=== PATIENT | male | born 1960 | race Caucasian/White ===

== ENCOUNTER 2017-08-10 10:21 | Emergency (ER) | payer BC ==
[2017-08-10 10:36] VITALS: BP 138/87
[2017-08-10] MEDS ORDERED: Sodium Chloride 0.9% 10 ML Syringe FLUSH PRN (10:42)
--- NOTE | 2017-08-10 12:43 | CR ---
INDICATION: Chest pain. CHEST: An AP upright portable view of the chest was obtained 08/10/2017 - no comparisons were available. The heart is normal in size and shape. The aorta is tortuous to a moderate degree. Overlying EKG leads are noted. A definite active infiltrate or effusion was not identified. IMPRESSION: No acute process. MTDD
--- NOTE | 2017-08-10 13:10 | ER ---
DATE SEEN: 08/10/2017 TIME SEEN: The patient was seen at 1045 hours. 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 This is 2/10. It has gradually increased to 3/10. He had it last night, on and off. He has slight pressure in his neck and slightly lightheaded. No associated diaphoresis, nausea, palpitations, tachycardia, shortness of breath, or cough. He has not traveled long distance. SOCIAL HISTORY: He does not chew tobacco, does not smoke. He has 2 drinks a week. FAMILY HISTORY: Brother, alive and well. Sister, alive and well. Father of a stroke in his 60s. Paternal grandfather of myocardial infarction in the 60s also. PAST SURGICAL HISTORY: Hernia surgery. His weight is 200-obesity. REVIEW OF SYSTEMS: Negative, except for noted above. The patient is nonsmoker. He has hypertension and dyslipidemia, and has been treated for both. MEDICATIONS: He takes; 1. Hydrochlorothiazide daily. 2. Simvastatin. PHYSICAL EXAMINATION: VITAL SIGNS: Blood pressure 138/87, heart rate 71, respirations 18, oxygen saturation 96%, and temperature is 36.6 degrees centigrade. CONSTITUTIONAL: Alert, overweight, well tanned, not anxious man, in no acute distress, nor does he have chest pain, without diaphoresis. HEENT: PERRLA intact. Eyegrounds negative. No AV nicking. TMs negative. Pharynx without abnormality. Gag in place. No fasciculation. NECK: No thyromegaly or masses in the neck. No cervical adenopathy. No tracheal tug or tracheal deviation. LUNGS: Clear without rales, rhonchi, or wheezes. HEART: S1, S2. No irregular rate and rhythm. No S3, no S4. ABDOMEN: Nontender. No guarding or abdominal discomfort. He has an increased abdominal girth. No masses noted. No CVA percussion tenderness. MUSCULOSKELETAL: No spinous process tenderness and paraspinal muscles in the neck. Lower extremities without edema. No tenderness of the gastroc muscles or vascular structures or popliteal structures or the femoral artery. Dorsalis pedis pulse intact. Capillary refill is normal. Deep tendon reflexes normal in upper and lower extremities. NEUROLOGIC: Cranial nerves 2 through 12 intact. Gait intact. Speech appropriate. Thought content appropriate. IMAGING: EKG, sinus rhythm with one premature ventricular complex. No Q-waves noted. No abnormality of ST waves. LABORATORY DATA: Troponin is normal, less than 0.017. D-dimer is negative at less than 0.19. Hemoglobin is 15.8, slightly increased. Hematocrit is 45. MCHC index normal. White count 7800, PMNs 58, lymphocytes 31, monos 9, and platelets 236,000-normal. Complete metabolic panel is normal. Sodium 139, potassium 4.0, chloride 103, bicarb 31, GFR greater than 60 with BUN-creatinine ratio 18.9, creatinine 0.9, and BUN 17. ASSESSMENT: 1. Chest pain, etiology indeterminate, rule out possible myocardial ischemia. 2. Family history of heart attack in paternal grandfather and early stroke in his father. 3. Cerebrovascular accident. 4. Dyslipidemia. 5. Hypertension, treated. 6. Obesity, 200-plus pounds. PLAN: The patient will take Imdur 30 mg daily. Followup with his doctor in a week. A stress test to be ordered for Sunday at [facility] (very close to within the 48-hour window as recommended by [place] [employer]). Follow up with Dr. Ruth next week. He should not do any heavy exertion until he is cleared with a stress test and by Dr. Ruth. Otherwise, he is able to work. He is to start walking 1 mile a day, either in the morning or in the evening, or twice a day to reduce his weight. He needs to lose 20 to 30 pounds. /[id number] TRINO/DEBBIE FRASER
== END 2017-08-10 11:59 | disposition home or self-care (01) ==
LOC: FB.ED 10:21
DX: R07.9 Chest pain, unspecified (principal); I63.9 Cerebral infarction, unspecified; E78.5 Hyperlipidemia, unspecified; E66.9 Obesity, unspecified
CPT/HCPCS: 36415; 71045; 80053; 84484; 85025; 85379; 93005; 99285; J7050